=== PATIENT | male | born 1975 | race Caucasian/White ===

== ENCOUNTER 2016-07-31 14:48 | Emergency (ER) | payer SELFPAY ==
[~2016-07-31] VITALS: Ht 175.3 cm; Wt 86.2 kg
--- NOTE | 2016-07-31 15:06 | ED Integumentary General ---
General Chief Complaint: Skin/Wound Problems Stated Complaint: ABSCESS ON BACK Nursing Triage Note: Patient reports an abscess on his back for 1 month, patient reports before that it was a sore on there for 21 years. patient reports went to in [place] and given script for bactrim DS on 07/05/15 but it made him sick so he quit taking it Source: patient Exam Limitations: no limitations History of Present Illness Time seen by provider: 15:04 Initial Comments To ER with abscess on his back for one month. Prior to this was just a small nodule for many years. He is currently on Bactrim prescribed by provider in [facility]. This was prescribed on 07/05/15 but it made him sick so he quit taking it. Timing/Duration: other Severity: moderate Location: torso Allergies and Home Medications Allergies Coded Allergies: No Known Drug Allergies (Unverified , 07/31/16) Home Medications No Active Prescriptions or Reported Meds Constitutional: see HPI, No chills, No fever EENTM: see HPI Respiratory: no symptoms reported Cardiovascular: no symptoms reported Genitourinary: no symptoms reported Musculoskeletal: no symptoms reported Skin: see HPI Psychiatric/Neurological: No Symptoms Reported Endocrine: No Symptoms Reported Hematologic/Lymphatic: No Symptoms Reported Past Vnratls-Lfjyoa-Sbgfde Hx Patient Social History Alcohol Use: Denies Use Recreational Drug Use: No Smoking Status: Current Everyday Smoker Type Used: Cigarettes 2nd Hand Smoke Exposure: Yes Recent Foreign Travel: No Contact w/Someone Who Travel: No Recent Infectious Disease Expo: No Physical Exam Vital Signs Vital Sign - Last 12Hours 07/31/16 14:57 Temp 98.2 Pulse 85 Resp 18 B/P (MAP) 135/88 Pulse Ox 97 O2 Delivery Room Air Capillary Refill : Less Than 3 Seconds General Appearance: WD/WN, no apparent distress HEENT: PERRL/EOMI, normal ENT inspection Neck: non-tender, full range of motion Respiratory: no respiratory distress, no accessory muscle use Gastrointestinal: non tender, soft Neurologic/Psychiatric: alert, normal mood/affect, oriented x 3 Skin: normal color, warm/dry Skin Problem Character: abscess Progress/Results/Core Measures Results/Orders My Orders Orders - COLTON GALEANO APRN Wound Culture (07/31/16 15:03) Lidocaine/Epi 1% 1:100,000 (Xylocaine /E (07/31/16 15:15) Medications Given in ED Current Medications Medications Dose Ordered Sig/Beverly Route Start Time Stop Time Status Last Admin Dose Admin Lidocaine/ Epinephrine 10 ml ONCE ONCE INJ 07/31/16 15:15 07/31/16 15:16 DC 07/31/16 15:18 10 ML Vital Signs/I&O Vital Sign - Last 12Hours 07/31/16 14:57 Temp 98.2 Pulse 85 Resp 18 B/P (MAP) 135/88 Pulse Ox 97 O2 Delivery Room Air Blood Pressure Mean: 104 Departure Impression Impression: Primary Impression: Inflamed sebaceous cyst Disposition: HOME, SELF-CARE Condition: Stable Departure-Patient Inst. Decision time for Depature: 15:36 Referrals: NO,LOCAL PHYSICIAN (PCP/Family) Primary Care Physician Patient Instructions: Abscess Incision and Drainage (DC) Add. Discharge Instructions: 1. Leave the drain in place and return here to the emergency room in 7 or 8 days to have the drain removed. Change the bandage overlying this as needed. Expect to change it every couple hours at least for the first few days as there was a tremendous amount of drainage within this. Return to ER for any fevers, worsening redness or other concerns 2. Take the antibiotics and pain medication as directed 3. All discharge instructions reviewed with patient and/or family. Voiced understanding. Scripts Hydrocodone/Acetaminophen (Placida 5-325 Tablet) 1 Each Tablet 1 EACH PO Q4H Y for PAIN-MODERATE, #14 TAB Prov: COLTON GALEANO APRN 07/31/16 Doxycycline Hyclate (Doxycycline Hyclate) 100 Mg Tablet.dr 100 MG PO BID, #20 TAB Prov: COLTON GALEANO APRN 07/31/16 Amoxicillin (Amoxicillin) 500 Mg Capsule 500 MG PO TID, #21 CAP Prov: COLTON GALEANO APRN 07/31/16 COLTON GALEANO APRN Jul 31, 2016 15:06
[2016-07-31] MEDS ORDERED: LIDOCAINE/EPI 1%-1:100,000 (XYLOCAINE) 20ML INJ ONE (15:15)
[2016-07-31] MEDS ORDERED: AMOX500C2 PO (15:38)
[2016-07-31] MEDS ORDERED: DOXY-227 PO (15:38)
[2016-07-31] MEDS ORDERED: HYDR-757 PO (15:38)
[2016-07-31 15:41] VITALS: BP 135/88
== END 2016-07-31 15:41 | disposition home or self-care (01) ==
LOC: EDUNIT# 14:48 → ER 14:51
DX: L72.3 Sebaceous cyst (principal); F17.210 Nicotine dependence, cigarettes, uncomplicated
CPT/HCPCS: 10160; 87070; 87205

== ENCOUNTER 2016-08-09 12:42 | Emergency (ER) | payer SELFPAY ==
[~2016-08-09] VITALS: Ht 175.3 cm; Wt 86.2 kg
[~2016-08-09 12:42] MED LIST: AMOX500C2 PO; DOXY-227 PO; HYDR-757 PO
[2016-08-09 12:52] VITALS: BP 151/85
== END 2016-08-09 12:52 | disposition home or self-care (01) ==
LOC: EDUNIT# 12:42 → ER 12:44
DX: Z48.02 Encounter for removal of sutures (principal)